=== PATIENT | female | born 1990 | race Caucasian/White ===

== ENCOUNTER 2017-03-18 00:02 | Emergency (ER) | payer OTHER ==
[2017-03-18] MEDS ORDERED: HYDROCODONE/ACETAMINOPHEN 5-325 MG TABLET PO ONE (01:53)
[2017-03-18] MEDS ORDERED: ONDANSETRON 4 MG TAB.RAPDIS PO ONE (01:54)
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
[2017-03-18] MEDS ORDERED: HYDROCODONE/ACETAMINOPHEN 5-325 MG 6 TAB/DSPK PO PRN (03:38)
[2017-03-18 04:40] VITALS: BP 124/76
== END 2017-03-18 04:38 | disposition home or self-care (01) ==
LOC: ER 00:02
DX: S20.312A Abrasion of left front wall of thorax, initial encounter (principal); S50.812A Abrasion of left forearm, initial encounter; R07.89 Other chest pain; M25.512 Pain in left shoulder; M79.631 Pain in right forearm; V49.40XA Driver injured in collision with unspecified motor vehicles in traffic accident, initial encounter; W22.11XA Striking against or struck by driver side automobile airbag, initial encounter; Z79.899 Other long term (current) drug therapy; Z88.8 Allergy status to other drugs, medicaments and biological substances
CPT/HCPCS: 99284; 71020; S0119